=== PATIENT | female | born 1935 | race African-American/Black ===

== ENCOUNTER 2019-06-26 12:53 | Observation (INO) | payer MEDICARE ==
[2019-06-26 13:26] LABS: ABSOLUTE LYMPHOCYTES (AUTO) 1.3 10^3/uL (0.5-4.7); ABSOLUTE MONOCYTES (AUTO) 0.7 10^3/uL (0.1-1.4); ABSOLUTE NEUT (AUTO) 3.8 10^3/uL (1.7-8.2); BASOPHILS % (AUTO) 0.8 % (0-2); EOSINOPHILS % (AUTO) 0.7 % (0-6); HEMATOCRIT 38.9 % (36.0-47.0); HEMOGLOBIN 12.1 g/dL (12.0-15.5); LYMPHOCYTES % (AUTO) 22.2 % (13-45); MEAN CORPUSCULAR HGB CONC 31.1 g/dL (32.0-36.0); MEAN CORPUSCULAR VOLUME 80 fl (80-97); MONOCYTES % (AUTO) 11.8 % (3-13); PLATELET COUNT 188 10^3/uL (150-450); RED BLOOD COUNT 4.86 10^6/uL (3.72-5.28); SEGMENTED NEUTROPHILS % (AUTO) 64.5 % (42-78); TOTAL CELLS COUNTED % (AUTO) 100 %; WHITE BLOOD COUNT 5.9 10^3/uL (4.0-10.5)
[2019-06-26 13:47] LABS: ALBUMIN 4.3 g/dL (3.5-5.0); ALKALINE PHOSPHATASE 68 U/L (38-126); ANION GAP 16 (5-19); ASPARTATE AMINO TRANSFERASE 118 U/L (14-36); BILIRUBIN,DIRECT 0.5 mg/dL (0.0-0.4); BILIRUBIN,TOTAL 0.5 mg/dL (0.2-1.3); BLOOD UREA NITROGEN 114 mg/dL (7-20); CALCIUM 9.3 mg/dL (8.4-10.2); CARBON DIOXIDE 25 mmol/L (22-30); CHLORIDE 96 mmol/L (98-107); CREATINE KINASE 25 U/L (30-135); GLUCOSE 188 mg/dL (75-110); TOTAL PROTEIN 7.3 g/dL (6.3-8.2)
[2019-06-26] MEDS ORDERED: CALCIUM GLUCONATE 1000 MG/10 ML INJ IV ONE (13:47)
--- NOTE | 2019-06-26 13:53 | ER Document Report ---
ED Cardiac - General Chief Complaint: Arrhythmia Stated Complaint: HEART PROBLEMS Time Seen by Provider: 06/26/19 13:30 - Related Data Allergies/Adverse Reactions: Penicillins Allergy (Verified 06/26/19 13:00) Past Medical History - Social History Smoking Status: Former Smoker Family History: Reviewed & Not Pertinent Patient has suicidal ideation: No Patient has homicidal ideation: No Physical Exam - Vital signs Vitals: Temp Resp BP Pulse Ox 97.8 F 11 L 124/46 L 100 06/26/19 13:17 06/26/19 13:17 06/26/19 13:17 06/26/19 13:17 - Notes Notes: Patient was sent from dialysis valuation of low blood pressure and slow heart rate. I did verify this family said the blood pressure was low and heart rate was slow. Patient is normally dialyzed Wednesday and Wednesday. Had normal dialysis on Wednesday her weight was not up at the time. Her family says that her weight was up a little bit today but she gets that way after the weekend. She has been compliant with her medications family says that the give her all her medications. Right eye is been good. She denies any fevers denies any chest pain shortness of breath having abdominal pain or diarrhea. Complained of a little bit of nausea today and being lightheaded but she has had intermittently anyway. Denies any chest pain. EMS reports that patient was doing some weakness no hypotension noted Past medical history sent for hypertension renal failure on dialysis Wednesday and Wednesday did have diabetes and improved on dialysis she is elevated cholesterol and mild dementia but no history coronary artery disease. Social history does not smoke or drink at all Review of systems pertinent positives and negatives in HPI otherwise all the systems were reviewed and acutely negative patient is somewhat confused so unclear how reliable PHYSICIAN EXAM -vital signs are noted triage note and note from triage reviewed GENERAL: Well-appearing, well-nourished and in _no acute distress HEAD: Atraumatic, normocephalic. EYES: Pupils equal round and reactive to light, extraocular movements intact, sclera anicteric, conjunctiva are normal. ENT: nares patent, oropharynx clear without exudates. Moist mucous membranes. NECK: supple without lymphadenopathy LUNGS: Breath sounds clear to auscultation bilaterally and equal. No wheezes rales or rhonchi. HEART: He has a very slow heart rate with a 2/6 soft ejection murmur he has a strong radial pulse ABDOMEN: Soft, nontender, normoactive bowel sounds. EXTREMITIES: No deformity, +2 edema to the knee but no palpable cords NEUROLOGICAL: Alert and oriented x4. She answers all questions appropriately but at times seems confused then will go off on tangents cranial nerves he has symmetrical smile facies and shoulder shrug. His motor strength is 5/5 bilaterally in the upper and lower extremities. Toes downgoing. Sensation is intact to light touch is a negative Romberg PSYCH: Normal mood, normal affect. SKIN: Warm, Dry, normal turgor, no rashes or lesions noted. BACK-nontender in the midline Differential diagnosis acute anemia unintentional overdose to b-melony toxicity Course - Re-evaluation Re-evalutation: 06/26/19 21:27 ED patient is remained stable immediately after reviewing EKG was concerned about hyperkalemia. She was given 1 g of calcium gluconate 2 amp of D50 10 units of insulin, and a bicarb drip. Megan case with nephrology versus Kayexalate indicated they would be able to dialyze the patient in about 2 hours. Discussed care with cardiology they felt was related to her potassium and indicated they would see the patient later if she was to have complications post dialysis. Patient did well during dialysis with improvement of her heart rate to the low 40s. Blood pressure remained about the same. Just at the end of dialysis I was called to the room because patient had a brief staring episode. Dialysis nurse that the patient was trembling a little bit but no actual seizures. Today she seems confused but quickly came around and was able to answer all questions appropriately. She did not have any preceding chest pain headache or lightheadedness and remembers her body coming in the room. On repeat exam is noted that her heart rate increases to 70s but markedly increased to 240/120 but she is awake and alert. On exam lungs are clear heart is regular rate and rhythm neurological she had a nonfocal exam. A repeat EKG was obtained which now showed a normal sinus rhythm with some very minimal nonspecific ST wave changes head CT was negative patient has remained neurologically intact. Her sugar at that time was 91 empirically she was given orange juice with sugar and then a snack pressure is now improved to 07/03/1983 family says she only runs diastolics around 160 Medical decision making patient presents with an episode of weakness and severe bradycardia probably related to her hyperkalemia heart rate has improved blood pressure has been stable she had a brief episode of unresponsiveness of unclear etiology did not appear to be consistent with a seizure or vasovagal. She was not over dialyzed according to the dialysis nurse as a has not had a reaction like this before with dialysis according to the son she will need admission to the hospital ordered repeat labs - Vital Signs Vital signs: Temp Pulse Resp BP Pulse Ox 98.1 F 14 181/53 H 99 06/26/19 20:27 06/26/19 20:31 06/26/19 20:30 06/26/19 20:31 - Laboratory Result Diagrams: 06/26/19 13:10 06/26/19 15:55 Laboratory results interpreted by me: 06/26/19 06/26/19 06/26/19 13:10 13:10 15:55 MCH 25.0 L MCHC 31.1 L RDW 20.0 H Sodium 136.7 L Potassium 6.7 H* 6.9 H* Chloride 96 L BUN 114 H Creatinine 8.80 H Est GFR ( Amer) 5 L Est GFR (MDRD) Non-Af 4 L Glucose 188 H Direct Bilirubin 0.5 H AST 118 H Creatine Kinase 25 L - EKG Interpretation by Me Additional EKG results interpreted by me: 06/26/19 13:52 EKG shows a junctional rhythm with a rate of 32 no P waves present. Does appear to be a regular rhythm normal axis and QT interval. P waves appear to be peaked old EKGs for comparison Critical Care Note - Critical Care Note Total time excluding time spent on procedures (mins): 75 Discharge - Discharge Clinical Impression: Hyperkalemia, Bradycardia, Near syncope Chronic renal failure Qualifiers: Chronic kidney disease stage: unspecified stage Qualified Code(s): N18.9 - Chronic kidney disease, unspecified Condition: Good Disposition: ADMITTED OBSERVATION Admitting Provider: Ari (Hospitalist) Unit Admitted: Telemetry
[2019-06-26 13:56] LABS: POTASSIUM 6.7 mmol/L (3.6-5.0)
[2019-06-26 13:57] LABS: CREATINE KINASE MB 1.72 ng/mL (<4.55); TROPONIN I 0.03 ng/mL
[2019-06-26] MEDS ORDERED: DEXTROSE 5%-WATER 1000 ML 1,000 ML with SODIUM BICARBONATE 150 MEQ IV PRN ×2 (14:06)
[2019-06-26] MEDS ORDERED: DEXTROSE 10%-WATER 1,000 ML IV ONE (14:09)
[2019-06-26] MEDS ORDERED: INSULIN REG, HUMAN 100 UNIT/ML 3 ML VIAL (PYX) IV ONE (14:11)
--- NOTE | 2019-06-26 14:32 | RADIOLOGY REPORT (SQ) ---
EXAM DESCRIPTION: CHEST SINGLE VIEW COMPLETED DATE/TIME: 06/26/2019 2:20 pm REASON FOR STUDY: Week COMPARISON: None. EXAM PARAMETERS: NUMBER OF VIEWS: One view. TECHNIQUE: Single frontal radiographic view of the chest acquired. RADIATION DOSE: NA LIMITATIONS: None. FINDINGS: LUNGS AND PLEURA: No opacities, masses or pneumothorax. No pleural effusion. MEDIASTINUM AND HILAR STRUCTURES: No masses. Contour normal. HEART AND VASCULAR STRUCTURES: Heart normal in size. Normal vasculature. BONES: No acute findings. HARDWARE: None in the chest. OTHER: No other significant finding. IMPRESSION: NO ACUTE RADIOGRAPHIC FINDING IN THE CHEST. TECHNICAL DOCUMENTATION: JOB ID: [id number]- All Rights Reserved Reading location - IP/workstation name: [email or web address]
[2019-06-26] MEDS ORDERED: SODIUM POLYSTYRENE SULFONATE 15 GM/60 ML PO ONE (14:45)
[2019-06-26] MEDS ORDERED: SODIUM BICARBONATE 8.4% INJ 50 MEQ/50 ML DISP.SYRIN ONE (15:16)
[2019-06-26] MEDS ORDERED: DEXTROSE 50%-WATER 25 GM/50 ML DISP.SYRIN IV ONE (15:33)
--- NOTE | 2019-06-26 16:36 | PDOC CONSULTATION ---
Consultation Consult Date: 06/26/19 Provider Consulted: Jovi DE LEON Consult reason:: Acute hyperkalemia with EKG changes for urgent HD. History of Present Illness History of Present Illness: VANESSA INGRAM is a 84 year old female with a history of ESRD on HD who just transferred from an outside unit in [facility] to [facility] , Hypertension was send from [facility] with a history that she was not her regular self. She is also found to have hypotension with her heart rate in the mid to upper 30s. There is no history of any seizures or focal deficits. There is no complaints of any chest pain or shortness of breath. Evaluations in the ER r evealed that she was hypotensive and the heart rate was in the high 30s. Further lab evaluations revealed that she was also hyperkalemic at 6.9 with EKG changes which was presumed to be the cause of her symptomatic bradycardia. She was evaluated and after further discussions with the ER physician and urgent anti-hyperkalemic measures were instituted. Following that urgent hemodialysis was instructed to do that and patient looking good while being seen on dialysis. Son and [id number] to the bedside in the ER while patient is undergoing dialysis. They have not see any weakness seizures or loss of loss of consciousness. Patient currently undergoing dialysis. Blood pressure stable.h eart rate is around 35-40. Dialysis orders were reviewed with him dialysis nurse for Past Medical History Cardiac Medical History: Reports: Hyperlipidemia, Hypertension-primary Endocrine Medical History: Reports: Diabetes Mellitus Type 2 Renal/ Medical History: Reports: End Stage Renal Disease, Secondary Hyperparathyroidism Social History Smoking Status: Former Smoker Family History Parental Family History Reviewed: No Children Family History Reviewed: No Sibling(s) Family History Reviewed.: No Medication/Allergy Home Medications: Acetaminophen [Tylenol 650 mg Supp] 650 mg TN Q4HP PRN supp.rect 06/27/19 Amlodipine Besylate [Norvasc 10 mg Tablet] 10 mg PO DAILY 06/27/19 Aspirin [Ecotrin 81 mg EC Tablet] 81 mg PO DAILY 06/27/19 Clonidine HCl [Catapres 0.2 mg Tablet] 0.2 mg PO Q12 06/27/19 Hydralazine HCl [Apresoline 25 mg Tablet] 25 mg PO TID #90 tab 06/27/19 Lidocaine/Prilocaine [Lidocaine-Prilocaine Cream] 1 each TP ASDIR PRN 06/27/19 Lovastatin 60 mg PO QHS 06/27/19 Multivitamin [Tab-A-Chantelle (Multiple Vitamin) Tablet] 1 tab PO DAILY 06/27/19 Venlafaxine HCl [Venlafaxine HCl ER] 150 mg PO Q12 06/27/19 Allergies/Adverse Reactions: Penicillins Allergy (Verified 06/26/19 13:00) Review of Systems Constitutional: ABSENT: anorexia, chills, fever(s), headache(s), night sweats, weakness Eyes: ABSENT: visual disturbances Ears: ABSENT: hearing changes Nose, Mouth, and Throat: ABSENT: mouth pain, sore throat Cardiovascular: PRESENT: edema. ABSENT: chest pain, dyspnea on exertion, orthropnea, palpitations Respiratory: ABSENT: dyspnea, hemoptysis Gastrointestinal: ABSENT: abdominal pain, bloating, coffee ground emesis, diarrhea, dysphagia, heartburn, nausea, vomiting Musculoskeletal: ABSENT: deformity, joint swelling Integumentary: ABSENT: lesions, pruritus Neurological: PRESENT: memory loss. ABSENT: abnormal movements, abnormal speech, confusion, convulsions, focal weakness, frequent falls, lack of coordination Psychiatric: ABSENT: depression, hallucinations Hematologic/Lymphatic: ABSENT: easy bruising, lymphadenopathy Physical Exam Vital Signs: Temp Pulse Resp BP Pulse Ox 97.8 F 14 114/68 98 06/26/19 13:17 06/26/19 16:00 06/26/19 15:32 06/26/19 16:00 Intake & Output 06/25/19 06/26/19 06/27/19 06:59 06:59 06:59 Weight 52.163 kg General appearance: PRESENT: no acute distress Eye exam: PRESENT: EOMI, PERRLA. ABSENT: scleral icterus Ear exam: PRESENT: normal external ear exam Mouth exam: PRESENT: moist, neck supple Neck exam: ABSENT: lymphadenopathy, meningismus, tenderness, thyromegaly, tracheal deviation Respiratory exam: PRESENT: clear to auscultation viviane. ABSENT: chest wall tenderness, crackles Cardiovascular exam: PRESENT: +S1, +S2 GI/Abdominal exam: PRESENT: normal bowel sounds, soft. ABSENT: organomegaly, tenderness Extremities exam: PRESENT: +1 edema Neurological exam: PRESENT: alert, awake, oriented to person, oriented to place. ABSENT: oriented to time Psychiatric exam: PRESENT: appropriate affect Skin exam: ABSENT: cyanosis, erythema, mottled, rash Results Laboratory Results: 06/26/19 13:10 06/26/19 15:55 06/26/19 06/26/19 06/26/19 13:10 13:10 13:10 WBC 5.9 RBC 4.86 Hgb 12.1 Hct 38.9 MCV 80 MCH 25.0 L MCHC 31.1 L RDW 20.0 H Plt Count 188 Seg Neutrophils % 64.5 Sodium 136.7 L Potassium 6.7 H* Chloride 96 L Carbon Dioxide 25 Anion Gap 16 BUN 114 H Creatinine 8.80 H Est GFR ( Amer) 5 L Glucose 188 H Lactic Acid Calcium 9.3 Total Bilirubin 0.5 AST 118 H Alkaline Phosphatase 68 Total Protein 7.3 Albumin 4.3 Blood Type Cancelled Antibody Screen Cancelled 06/26/19 06/26/19 15:55 15:55 WBC RBC Hgb Hct MCV MCH MCHC RDW Plt Count Seg Neutrophils % Sodium Potassium 6.9 H* Chloride Carbon Dioxide Anion Gap BUN Creatinine Est GFR ( Amer) Glucose Lactic Acid 1.4 Calcium Total Bilirubin AST Alkaline Phosphatase Total Protein Albumin Blood Type Antibody Screen 06/26/19 06/26/19 13:10 13:10 Creatine Kinase 25 L CK-MB (CK-2) 1.72 Troponin I 0.030 Impressions: Chest X-Ray 06/26/19 14:04 IMPRESSION: NO ACUTE RADIOGRAPHIC FINDING IN THE CHEST. Assessment & Plan - Diagnosis (1) Bradycardia Is this a current diagnosis for this admission?: Yes Plan: Likely secondary to severe hyperkalemia. Changes. Anti-hyperkalemic measures has been instituted and patient currently undergoing dialysis on a appropriate low K bath. We will see the response postdialysis. Discussion done with the treating ER physician. (2) Hyperkalemia Is this a current diagnosis for this admission?: Yes Plan: After medical emergency measures has been instituted given the acuity changes from hyperkalemia patient now undergoing emergent hemodialysis on a market K bath. We will see response postdialysis. (3) End-stage renal disease on hemodialysis Is this a current diagnosis for this admission?: Yes Plan: Patient currently undergoing dialysis. Vital signs are stable now with no rmotension but for bradycardia. Plan to remove 2 to 3 L as tolerated. Dialysis is being supervised to ensure safe and smooth procedure. Dialysis orders were reviewed in dialysis nurse. (4) Hypertension Qualifiers: Hypertension type: essential hypertension Qualified Code(s): I10 - Essential (primary) hypertension Is this a current diagnosis for this admission?: Yes Plan: Normotensive. Monitor. (5) Diabetes mellitus type 2 in nonobese Is this a current diagnosis for this admission?: Yes Plan: Presently controlled.
--- NOTE | 2019-06-26 17:18 | EKG REPORT ---
SEVERITY:- ABNORMAL ECG - JUNCTIONAL ESCAPE RHYTHM TALL T WAVES .? HYPERKALEMIA : Confirmed by: Ayaka Sandoval MD 26-Jun-2019 17:17:34
[2019-06-26] MEDS ORDERED: ONDANSETRON HCL INJ/PF 4 MG/2 ML SDV ONE (19:18)
[2019-06-26] MEDS ORDERED: ONDANSETRON HCL INJ/PF 4 MG/2 ML SDV IV ONE (19:23)
--- NOTE | 2019-06-26 20:38 | RADIOLOGY REPORT (SQ) ---
EXAM DESCRIPTION: CT HEAD WITHOUT INTRAVENOUS CONTRAST CLINICAL HISTORY: Altered mental status. COMPARISON: None TECHNIQUE: CT of the head was performed without intravenous contrast .This exam was performed according to our departmental dose-optimization program, which includes automated exposure control, adjustment of the mA and/or KV according to the patient's size and/or use of iterative reconstruction technique. FINDINGS: Ventricles not significantly enlarged. Mild cortical atrophy. Moderate periventricular white matter hypodensities chronic in nature. No obvious acute intra-axial or extra-axial abnormality. Atherosclerotic disease. Empty sella. Bony calvarium, mastoid air cells and paranasal sinuses are unremarkable. IMPRESSION: Chronic periventricular white matter changes. Atherosclerotic disease. Empty sella. There are no acute intracranial findings.
[2019-06-26 22:02] LABS: ANION GAP 15 (5-19); CARBON DIOXIDE 31 mmol/L (22-30); CHLORIDE 93 mmol/L (98-107); GLUCOSE 111 mg/dL (75-110)
[2019-06-26 22:27] LABS: BLOOD UREA NITROGEN 63 mg/dL (7-20); POTASSIUM 4.3 mmol/L (3.6-5.0)
[2019-06-26] MEDS ORDERED: MELATONIN 5 MG TABLET PO PRN (22:35)
[2019-06-26] MEDS ORDERED: LORAZEPAM INJ 2 MG/1 ML VIAL IV PRN (22:35)
[2019-06-26] MEDS ORDERED: MAG HYDROX/AL HYDROX/SIMETH SUSP 30 ML UDCUP PO PRN (22:35)
[2019-06-26] MEDS ORDERED: MAGNESIUM HYDROXIDE SUSP 30 ML UDCUP PO PRN (22:35)
[2019-06-26] MEDS ORDERED: ACETAMINOPHEN 650 MG SUPP.RECT PR PRN (22:35)
[2019-06-26] MEDS ORDERED: HYDRALAZINE HCL INJ/PF 20 MG/1 ML SDV IV PRN (22:35)
[2019-06-26] MEDS ORDERED: ONDANSETRON HCL INJ/PF 4 MG/2 ML SDV IV PRN (22:37)
[2019-06-26 22:41] LABS: ABSOLUTE MONOCYTES (AUTO) 0.6 10^3/uL (0.1-1.4); ABSOLUTE NEUT (AUTO) 4.6 10^3/uL (1.7-8.2); BASOPHILS % (AUTO) 0.4 % (0-2); EOSINOPHILS % (AUTO) 0.7 % (0-6); HEMATOCRIT 39.8 % (36.0-47.0); HEMOGLOBIN 12.6 g/dL (12.0-15.5); LYMPHOCYTES % (AUTO) 15.8 % (13-45); MEAN CORPUSCULAR HGB CONC 31.6 g/dL (32.0-36.0); MEAN CORPUSCULAR VOLUME 79 fl (80-97); MONOCYTES % (AUTO) 10.1 % (3-13); PLATELET COUNT 189 10^3/uL (150-450); RED BLOOD COUNT 5.03 10^6/uL (3.72-5.28); RED CELL DISTRIBUTION WIDTH 19.2 % (11.5-14.0); TOTAL CELLS COUNTED % (AUTO) 100 %; WHITE BLOOD COUNT 6.3 10^3/uL (4.0-10.5)
[2019-06-26] MEDS ORDERED: DEXTROSE 50%-WATER 25 GM/50 ML DISP.SYRIN IV PRN ×2 (22:44)
[2019-06-26] MEDS ORDERED: DEXTROSE 40% GEL 15 GM TUBE PO PRN ×2 (22:44)
[2019-06-26] MEDS ORDERED: GLUCAGON,HUMAN RECOMB 1 MG INJ IM PRN (22:44)
--- NOTE | 2019-06-27 00:58 | PDOC H&P ---
History of Present Illness Admission Date/PCP: 06/26/19 21:53 Dr. Madhav Arnold MD Patient complains of: Bradycardia History of Present Illness: VANESSA ESPINOZA is a 84 year old female who presented to the emergency room from the dialysis clinic for evaluation of bradycardia. The patient and her family admit that she presented to the dialysis center for her normal renal hemodialysis today but was noted to have a slow heart rate in the 30s and as such was sent to the emergency room for further evaluation. In the emergency room the patient was found to have a heart rate in the 30s and was also noted to be relatively hypotensive compared to her normal hypertensive state. She admitted mild nausea and lightheadedness upon standing today but these are symptoms that she has frequently and did not seem unusual to her. She denies other associated or accompanying signs and symptoms. She denies prior similar episodes. She has not identified any additional aggravating or ameliorating factors for her bradycardia. In the emergency room she was found to have hyperkalemia with a potassium of 6.[address] Arnold was consulted for nephrology. Patient was treated with glucose and insulin as well as bicarbonate and Kayexalate in the interim and then taken for hemodialysis therapy. At the end of her hemodialysis treatment the patient had a brief episode of decreased responsiveness and was noted to have some twitching all of which lasted a few seconds and resolved with the patient denying any loss of consciousness. Due to this brief episode the patient was placed on observation status for evaluation. Past Medical History Cardiac Medical History: Reports: Hyperlipidema, Hypertension Denies: Atrial Fibrillation, Coronary Artery Disease, Myocardial Infarction, Peripheral Vascular Disease Pulmonary Medical History: Denies: Asthma, Chronic Obstructive Pulmonary Disease (COPD) EENT Medical History: Denies: Cataracts, Ears - Hearing aids Neurological Medical History: Denies: Hemorrhagic CVA, Ischemic CVA, Seizures Endocrine Medical History: Reports: Diabetes Mellitus Type 2 Denies: Diabetes Mellitus Type 1, Hyperthyroidism, Hypothyroidism, Obesity Renal/ Medical History: Reports: End Stage Renal Disease Denies: Nephrolithiasis Malignancy Medical History: Reports: None GI Medical History: Denies: Cirrhosis, Crohn's Disease, Hepatitis, Ulcerative Colitis Musculoskeltal Medical History: Reports: Arthritis - Osteoarthritis involving multiple joints Denies: Fibromyalgia Skin Medical History: Denies: Eczema, Psoriasis Psychiatric Medical History: Denies: Alcohol Dependency, Substance Abuse, Tobacco Dependency Traumatic Medical History: Reports: None Hematology: Denies: Anemia, Bleeding Tendencies Infectious Medical History: Reports: None Past Surgical History Past Surgical History: Reports: Hysterectomy, Knee Replacement, Orthopedic Surgery - Bilateral shoulder surgery, left knee replacement, Vascular Surgery - Permanent hemodialysis access left upper arm Social History Information Source: Patient Lives with: Family Smoking Status: Former Smoker Electronic Cigarette use?: No Frequency of Alcohol Use: None Hx Recreational Drug Use: No Drugs: None Hx Prescription Drug Abuse: No - Advance Directive Resuscitation Status: Full Code Surrogate healthcare decision maker:: Antonio Espinoza Family History Family History: CAD, DM, Hypertension, Malignancy Parental Family History Reviewed: Yes Children Family History Reviewed: No Sibling(s) Family History Reviewed.: Yes Medication/Allergy Allergies/Adverse Reactions: Penicillins Allergy (Verified 06/26/19 13:00) Review of Systems Constitutional: PRESENT: as per HPI, other - Lightheadedness. ABSENT: chills, fever(s) Eyes: ABSENT: visual disturbances, other - Eye pain Ears: ABSENT: hearing changes, other - Ear pain Nose, Mouth, and Throat: ABSENT: headache(s), mouth pain, sore throat Cardiovascular: ABSENT: chest pain, palpitations Respiratory: ABSENT: cough, dyspnea Gastrointestinal: PRESENT: as per HPI, nausea. ABSENT: abdominal pain, constipation, diarrhea, vomiting Genitourinary: ABSENT: dysuria, hematuria Musculoskeletal: ABSENT: back pain, joint swelling, muscle weakness Integumentary: ABSENT: pruritus, rash Neurological: ABSENT: confusion, convulsions, focal weakness, memory loss, syncope Psychiatric: ABSENT: anxiety, depression Endocrine: ABSENT: cold intolerance, heat intolerance Hematologic/Lymphatic: ABSENT: easy bleeding, easy bruising Allergic/Immunologic: ABSENT: seasonal rhinorrhea Physical Exam Vital Signs: Temp Pulse Resp BP Pulse Ox 98.1 F 14 181/53 H 99 06/26/19 20:27 06/26/19 20:31 06/26/19 20:30 06/26/19 20:31 Intake & Output 06/24/19 06/25/19 06/26/19 23:59 23:59 23:59 Intake Total 1000 Balance 1000 Weight 52.163 kg General appearance: PRESENT: no acute distress, cooperative Head exam: PRESENT: atraumatic, normocephalic Eye exam: PRESENT: conjunctiva pink. ABSENT: conjunctival injection, scleral icterus Ear exam: PRESENT: normal external ear exam. ABSENT: bleeding, drainage Mouth exam: PRESENT: dry mucosa, neck supple Neck exam: ABSENT: thyromegaly, tracheal deviation Respiratory exam: PRESENT: clear to auscultation viviane, symmetrical, unlabored Cardiovascular exam: PRESENT: RRR. ABSENT: clicks, gallop, rubs Pulses: PRESENT: normal radial pulses, normal dorsalis pedis pul Vascular exam: PRESENT: normal capillary refill. ABSENT: pallor GI/Abdominal exam: PRESENT: normal bowel sounds, soft Rectal exam: PRESENT: deferred Extremities exam: ABSENT: joint swelling, pedal edema Musculoskeletal exam: ABSENT: deformity, dislocation Neurological exam: PRESENT: alert, oriented to person, oriented to place, oriented to time, oriented to situation, CN II-XII grossly intact. ABSENT: motor sensory deficit Psychiatric exam: PRESENT: appropriate affect, normal mood Skin exam: PRESENT: dry, intact, warm. ABSENT: jaundice, rash, urticaria Results Laboratory Results: 06/26/19 13:10 06/26/19 06/26/19 06/26/19 13:10 13:10 13:10 WBC 5.9 RBC 4.86 Hgb 12.1 Hct 38.9 MCV 80 MCH 25.0 L MCHC 31.1 L RDW 20.0 H Plt Count 188 Seg Neutrophils % 64.5 VBG pH VBG pCO2 VBG HCO3 VBG Base Excess Sodium 136.7 L Potassium 6.7 H* Chloride 96 L Carbon Dioxide 25 Anion Gap 16 BUN 114 H Creatinine 8.80 H Est GFR ( Amer) 5 L Glucose 188 H Lactic Acid Calcium 9.3 Total Bilirubin 0.5 AST 118 H Alkaline Phosphatase 68 Total Protein 7.3 Albumin 4.3 Blood Type Cancelled Antibody Screen Cancelled 06/26/19 06/26/19 06/26/19 15:55 15:55 17:05 WBC RBC Hgb Hct MCV MCH MCHC RDW Plt Count Seg Neutrophils % VBG pH VBG pCO2 VBG HCO3 VBG Base Excess Sodium Potassium 6.9 H* Chloride Carbon Dioxide Anion Gap BUN Creatinine Est GFR ( Amer) Glucose Lactic Acid 1.4 Calcium Total Bilirubin AST Alkaline Phosphatase Total Protein Albumin Blood Type A POSITIVE Antibody Screen NEGATIVE 06/26/19 17:16 WBC RBC Hgb Hct MCV MCH MCHC RDW Plt Count Seg Neutrophils % VBG pH Cancelled VBG pCO2 Cancelled VBG HCO3 Cancelled VBG Base Excess Cancelled Sodium Potassium Chloride Carbon Dioxide Anion Gap BUN Creatinine Est GFR ( Amer) Glucose Lactic Acid Calcium Total Bilirubin AST Alkaline Phosphatase Total Protein Albumin Blood Type Antibody Screen 06/26/19 06/26/19 13:10 13:10 Creatine Kinase 25 L CK-MB (CK-2) 1.72 Troponin I 0.030 Impressions: Chest X-Ray 06/26/19 14:04 IMPRESSION: NO ACUTE RADIOGRAPHIC FINDING IN THE CHEST. Head CT 06/26/19 19:35 IMPRESSION: Chronic periventricular white matter changes. Atherosclerotic disease. Empty sella. There are no acute intracranial findings. Assessment and Plan - Diagnosis (1) Near syncope Is this a current diagnosis for this admission?: Yes (2) Hyperkalemia Is this a current diagnosis for this admission?: Yes (3) Bradycardia Is this a current diagnosis for this admission?: Yes (4) End-stage renal disease on hemodialysis Is this a current diagnosis for this admission?: Yes (5) Hypertension Qualifiers: Hypertension type: essential hypertension Qualified Code(s): I10 - Essential (primary) hypertension Is this a current diagnosis for this admission?: Yes (6) Hyperlipidemia, unspecified Qualifiers: Hyperlipidemia type: unspecified Qualified Code(s): E78.5 - Hyperlipidemia, unspecified Is this a current diagnosis for this admission?: Yes (7) Diabetes mellitus type 2 in nonobese Is this a current diagnosis for this admission?: Yes - Plan Summary Summary: Patient is admitted observation status for of her status. She will be observed on the medical floor with a manager internet retails sales in place. Before meals and at bedtime Accu-Cheks will be obtained with sliding scale insulin used for hyperglycemia and a hypoglycemic protocol in place. Patient will receive Ativan 1 mg IV every 4 hours as needed for anxiety or restlessness. - Time Time Spent with patient: 15-24 minutes Medications reviewed and adjusted accordingly: Yes Anticipated discharge: Home - Inpatient Certification Based on my medical assessment, after consideration of the patient's comorbidities, presenting symptoms, or acuity I expect that the services needed warrant INPATIENT care.: No I certify that my determination is in accordance with my understanding of Medic are's requirements for reasonable and necessary INPATIENT services [42 CFR 412.3e].: No Medical Necessity: Need For Continuous Telemetry Monitoring
[2019-06-27] MEDS ORDERED: PANTOPRAZOLE SODIUM 20 MG TABLET.DR PO SCH (06:00)
[2019-06-27] MEDS: HEPARIN SOD (PORCINE) 5,000 UNIT/ML 1 ML VIAL SUBCUT SCH ×2 (06:13→15:01)
[2019-06-27 06:14] LABS: HEMATOCRIT 38.6 % (36.0-47.0); HEMOGLOBIN 12.3 g/dL (12.0-15.5); MEAN CORPUSCULAR HEMOGLOBIN 25.2 pg (27.0-33.4); MEAN CORPUSCULAR HGB CONC 31.8 g/dL (32.0-36.0); MEAN CORPUSCULAR VOLUME 79 fl (80-97); PLATELET COUNT 191 10^3/uL (150-450); RED BLOOD COUNT 4.88 10^6/uL (3.72-5.28); RED CELL DISTRIBUTION WIDTH 19.9 % (11.5-14.0); WHITE BLOOD COUNT 7.6 10^3/uL (4.0-10.5)
[2019-06-27 06:33] LABS: ANION GAP 14 (5-19); BLOOD UREA NITROGEN 66 mg/dL (7-20); CALCIUM 9.3 mg/dL (8.4-10.2); CARBON DIOXIDE 30 mmol/L (22-30); CHLORIDE 98 mmol/L (98-107); GLUCOSE 75 mg/dL (75-110); POTASSIUM 4.2 mmol/L (3.6-5.0)
[2019-06-27] MEDS ORDERED: DOCUSATE SODIUM 100 MG CAPSULE PO SCH (10:00)
[2019-06-27] MEDS ORDERED: INFLUENZA QUAD (6MOS+) 2019-20 VAC 0.5 ML SYR IM ONE (10:10)
[2019-06-27] MEDS: INSULIN REG, HUMAN 100 UNIT/ML 3 ML VIAL (PYX) SUBCUT SCH ×2 (10:20→14:42)
--- NOTE | 2019-06-27 11:22 | EKG REPORT ---
SEVERITY:- NORMAL ECG - SINUS RHYTHM : Confirmed by: Ayaka Sandoval MD 27-Jun-2019 11:21:24
[2019-06-27 14:20] VITALS: BP 179/60
--- NOTE | 2019-06-28 18:38 | PDOC DISCHARGE SUMMARY ---
Impression - Admit/DC Date/PCP Admission Date/Primary Care Provider: 06/26/19 21:53 Discharge Date: 06/27/19 - Additional Information Resuscitation Status: Full Code Discharge Diet: Cardiac, Other (Comments) Discharge Activity: Activity As Tolerated, Balance Activity w/Rest Referrals: Jovi ARNOLD MD [ACTIVE STAFF] - 06/28/19 (Patient will Follow-Up on next dialysis day.) Prescriptions: Hydralazine HCl [Apresoline 25 mg Tablet] 25 mg PO TID #90 tab Home Medications: Acetaminophen [Tylenol 650 mg Supp] 650 mg SC Q4HP PRN supp.rect 06/27/19 Amlodipine Besylate [Norvasc 10 mg Tablet] 10 mg PO DAILY 06/27/19 Aspirin [Ecotrin 81 mg EC Tablet] 81 mg PO DAILY 06/27/19 Clonidine HCl [Catapres 0.2 mg Tablet] 0.2 mg PO Q12 06/27/19 Hydralazine HCl [Apresoline 25 mg Tablet] 25 mg PO TID #90 tab 06/27/19 Lidocaine/Prilocaine [Lidocaine-Prilocaine Cream] 1 each TP ASDIR PRN 06/27/19 Lovastatin 60 mg PO QHS 06/27/19 Multivitamin [Tab-A-Chantelle (Multiple Vitamin) Tablet] 1 tab PO DAILY 06/27/19 Venlafaxine HCl [Venlafaxine HCl ER] 150 mg PO Q12 06/27/19 History of Present Illiness History of Present Illness: Per H&P by Dr. Roberts: VANESSA INGRAM is a 84 year old female who presented to the emergency room from the dialysis clinic for evaluation of bradycardia. The patient and her family admit that she presented to the dialysis center for her normal renal hemodialysis today but was noted to have a slow heart rate in the 30s and as such was sent to the emergency room for further evaluation. In the emergency room the patient was found to have a heart rate in the 30s and was also noted to be relatively hypotensive compared to her normal hypertensive state. She admitted mild nausea and lightheadedness upon standing today but these are symptoms that she has frequently and did not seem unusual to her. She denies other associated or accompanying signs and symptoms. She denies prior similar episodes. She has not identified any additional aggravating or ameliorating factors for her bradycardia. In the emergency room she was found to have hyperkalemia with a potassium of 6.[address] Arnold was consulted for nephrology. Patient was treated with glucose and insulin as well as bicarbonate and Kayexalate in the interim and then taken for hemodialysis therapy. At the end of her hemodialysis treatment the patient had a brief episode of decreased responsiveness and was noted to have some twitching all of which lasted a few seconds and resolved with the patient denying any loss of consciousness. Due to this brief episode the patient was placed on observation status for evaluation. Hospital Course Hospital Course: The patient was admitted to the medical floor and monitored on continuous cardiac telemetry. She was observed to have continued bradycardia until approximately 1800 on day of admission (following dialysis) at which point her heart rate gradually trended up and remained stable in the mid 70s thereafter. Nephrology services were consulted and the patient did receive dialysis prior to discharge. She is instructed to follow-up at [facility] dialysis tomorrow as scheduled for her normal dialysis appointments. Cardiology services were consulted. At the time of this dictation, consultation note is not yet available. However, I did have a conversation with Dr. Corey prior to her discharge. Dr. Corey advises that the patient may continue her home dose metoprolol XL 25 mg once daily as that dose is unlikely to have significant rate reduction properties. The patient's bradycardia was most likely caused by her hyperkalemia (K 6.9). Both hyperkalemia and HR were improved following dialysis. However, patient and family members remain nervous about continued use of metoprolol related to bradycardia. Therefore, metoprolol is discontinued and she is provided a prescription for hydralazine 25 mg 3 times daily. They are advised that the patient will likely require further medication review and adjustments by nephrology or PCP at follow up appointments. Follow-up orthostatic blood pressures are negative, patient has a stable heart rate, and she is asymptomatic while ambulatory. Patient is discharged home in stable condition into the care of family with home health services. She is advised to follow-up with her primary care provider within 1 week. She is instructed to keep her appointment with dialysis tomorrow. Follow-up with nephrology as scheduled. Eat a heart healthy and renal diet. Take medications as prescribed. Change positions slowly. She is encouraged to return to the emergency department as needed for concerning symptoms. Physical Exam Vital Signs: Temp Pulse Resp BP Pulse Ox 98.5 F 74 18 179/60 H 100 06/27/19 14:18 06/27/19 14:18 06/27/19 14:18 06/27/19 14:18 06/27/19 14:18 Intake & Output 06/27/19 06/28/19 06/29/19 06:59 06:59 06:59 Intake Total 1180 360 Output Total 2000 Balance -820 360 Weight 53.4 kg General appearance: PRESENT: no acute distress, cooperative, well-developed, well-nourished Head exam: PRESENT: atraumatic, normocephalic Eye exam: PRESENT: conjunctiva pink, EOMI, PERRLA. ABSENT: scleral icterus Ear exam: PRESENT: normal external ear exam Mouth exam: PRESENT: moist, tongue midline Neck exam: ABSENT: carotid bruit, JVD, lymphadenopathy, thyromegaly Respiratory exam: PRESENT: clear to auscultation viviane, symmetrical, unlabored. ABSENT: rales, rhonchi, wheezes Cardiovascular exam: PRESENT: RRR. ABSENT: diastolic murmur, rubs, systolic murmur Pulses: PRESENT: normal dorsalis pedis pul Vascular exam: PRESENT: normal capillary refill GI/Abdominal exam: PRESENT: normal bowel sounds, soft. ABSENT: distended, guarding, mass, organolmegaly, rebound, tenderness Rectal exam: PRESENT: deferred Extremities exam: PRESENT: full ROM. ABSENT: calf tenderness, clubbing, pedal edema Neurological exam: PRESENT: alert, awake, oriented to person, oriented to place, oriented to time, oriented to situation, CN II-XII grossly intact. ABSENT: m otor sensory deficit Psychiatric exam: PRESENT: appropriate affect, normal mood. ABSENT: homicidal ideation, suicidal ideation Skin exam: PRESENT: dry, intact, warm. ABSENT: cyanosis, rash Results Laboratory Results: WBC 7.6 10^3/uL (4.0-10.5) 06/27/19 05:28 RBC 4.88 10^6/uL (3.72-5.28) 06/27/19 05:28 Hgb 12.3 g/dL (12.0-15.5) 06/27/19 05:28 Hct 38.6 % (36.0-47.0) 06/27/19 05:28 MCV 79 fl (80-97) L 06/27/19 05:28 MCH 25.2 pg (27.0-33.4) L 06/27/19 05:28 MCHC 31.8 g/dL (32.0-36.0) L 06/27/19 05:28 RDW 19.9 % (11.5-14.0) H 06/27/19 05:28 Plt Count 191 10^3/uL (150-450) 06/27/19 05:28 Lymph % (Auto) 15.8 % (13-45) 06/26/19 22:34 [place] % (Auto) 10.1 % (3-13) 06/26/19 22:34 Eos % (Auto) 0.7 % (0-6) 06/26/19 22:34 Baso % (Auto) 0.4 % (0-2) 06/26/19 22:34 Absolute Neuts (auto) 4.6 10^3/uL (1.7-8.2) 06/26/19 22:34 Absolute Lymphs (auto) 1.0 10^3/uL (0.5-4.7) 06/26/19 22:34 Absolute Monos (auto) 0.6 10^3/uL (0.1-1.4) 06/26/19 22:34 Absolute Eos (auto) 0.0 10^3/uL (0.0-0.6) 06/26/19 22:34 Absolute Basos (auto) 0.0 10^3/uL (0.0-0.2) 06/26/19 22:34 Seg Neutrophils % 73.0 % (42-78) 06/26/19 22:34 VBG pH Cancelled 06/26/19 17:16 VBG pCO2 Cancelled 06/26/19 17:16 VBG HCO3 Cancelled 06/26/19 17:16 VBG Base Excess Cancelled 06/26/19 17:16 Sodium 142.2 mmol/L (137-145) 06/27/19 05:28 Potassium 4.2 mmol/L (3.6-5.0) 06/27/19 05:28 Chloride 98 mmol/L (98-107) 06/27/19 05:28 Carbon Dioxide 30 mmol/L (22-30) 06/27/19 05:28 Anion Gap 14 (5-19) 06/27/19 05:28 BUN 66 mg/dL (7-20) H 06/27/19 05:28 Creatinine 6.67 mg/dL (0.52-1.25) H 06/27/19 05:28 Est GFR ( Amer) 7 (>60) L 06/27/19 05:28 Est GFR (MDRD) Non-Af 6 (>60) L 06/27/19 05:28 Glucose 75 mg/dL (75-110) 06/27/19 05:28 POC Glucose 162 mg/dL (70-110) H 06/27/19 12:16 Lactic Acid 1.4 mmol/L (0.7-2.1) 06/26/19 15:55 Calcium 9.3 mg/dL (8.4-10.2) 06/27/19 05:28 Magnesium 2.6 mg/dL (1.6-2.3) H 06/27/19 05:28 Total Bilirubin 0.5 mg/dL (0.2-1.3) 06/26/19 13:10 Direct Bilirubin 0.5 mg/dL (0.0-0.4) H 06/26/19 13:10 Neonat Total Bilirubin Not Reportable 06/26/19 13:10 Neonat Direct Bilirubin Not Reportable 06/26/19 13:10 Neonat Indirect Bili Not Reportable 06/26/19 13:10 AST 118 U/L (14-36) H 06/26/19 13:10 ALT 117 U/L (<35) 06/26/19 13:10 Alkaline Phosphatase 68 U/L (38-126) 06/26/19 13:10 Creatine Kinase 25 U/L (30-135) L 06/26/19 13:10 CK-MB (CK-2) 1.72 ng/mL (<4.55) 06/26/19 13:10 Troponin I 0.029 ng/mL 06/26/19 21:35 Total Protein 7.3 g/dL (6.3-8.2) 06/26/19 13:10 Albumin 4.3 g/dL (3.5-5.0) 06/26/19 13:10 Blood Type A POSITIVE 06/26/19 17:05 Antibody Screen NEGATIVE 06/26/19 17:05 06/26/19 06/26/19 13:10 21:35 CK-MB (CK-2) 1.72 Troponin I 0.030 0.029 Impressions: Chest X-Ray 06/26/19 14:04 IMPRESSION: NO ACUTE RADIOGRAPHIC FINDING IN THE CHEST. Head CT 06/26/19 19:35 IMPRESSION: Chronic periventricular white matter changes. Atherosclerotic disease. Empty sella. There are no acute intracranial findings. Plan Plan of Treatment: The patient is discharged home in stable condition. She is advised to follow-up with her primary care provider within 1 week. She is instructed to keep her dialysis schedule and to follow-up with nephrology as previously scheduled. Take medications as prescribed. Change positions slowly. Return to the emergency department as needed for concerning symptoms. Time Spent: Greater than 30 Minutes Stroke Is this a Stroke Patient?: No Acute Heart Failure - Is this a Heart Failure Patient?: No
== END 2019-06-27 15:15 | disposition home or self-care (01) ==
LOC: ER 12:53 → EH 21:53 → 5 23:24
PROVIDERS: ADMIT Emergency Medicine; ATTEND Emergency Medicine
DX: R00.1 Bradycardia, unspecified (principal); I13.11 Hypertensive heart and chronic kidney disease without heart failure, with stage 5 chronic kidney disease, or end stage renal disease; E11.22 Type 2 diabetes mellitus with diabetic chronic kidney disease; N18.6 End stage renal disease; R55 Syncope and collapse; E87.5 Hyperkalemia; E78.5 Hyperlipidemia, unspecified; R25.3 Fasciculation; I95.9 Hypotension, unspecified; R60.9 Edema, unspecified; F03.90 Unspecified dementia, unspecified severity, without behavioral disturbance, psychotic disturbance, mood disturbance, and anxiety; M15.9 Polyosteoarthritis, unspecified; Z79.899 Other long term (current) drug therapy; Z79.82 Long term (current) use of aspirin; Z87.891 Personal history of nicotine dependence; Z96.652 Presence of left artificial knee joint; Z82.49 Family history of ischemic heart disease and other diseases of the circulatory system
CPT/HCPCS: 93005; 99291; 99292; 96374; 96375; 86900; 86901; 36415 ×2; 82553; 86850; 82962 ×2; 82550; 83605; 83735; 84132; 85025; 85027; 80048; 80053; 84484; 71045; 70450; 93010; G0378 ×3; G0257; J0610; J1644; J3490 ×3; J0360; A9270 ×3; J2405; J7060; J1815

== ENCOUNTER 2019-07-12 15:07 | Emergency (ER) | payer MEDICARE ==
--- NOTE | 2019-07-12 15:58 | ER Document Report ---
ED General - General Stated Complaint: ALTERED MENTAL STATUS Time Seen by Provider: 07/12/19 15:56 Mode of Arrival: Medic Information source: Patient, Relative TRAVEL OUTSIDE OF THE [place] IN LAST 30 DAYS: No - HPI Onset: Just prior to arrival Onset/Duration: Sudden Quality of pain: No pain Severity: None Pain Level: Denies Associated symptoms: Headache, Weakness, Other - Dizziness, syncope vs presyncope Exacerbated by: Denies Relieved by: Denies Similar symptoms previously: Yes - same thing happened in June when she had hyperkalemia Recently seen / treated by doctor: Yes - patient was admitted in June for the same Notes: 84 year old female with a history of HTN, HLD, ESRD, DM, Arthritis brought to the ER from dialysis (she had the whole session) due to feeling light headed, weak, and altered. EMS noted the patient's heart rate was in the 130s. The patient has an EKG on ER arrival showing the patient is in new onset AFib. The patient cannot tell me if she lost completely consciousness or not. Of note, the patient had a similar presentation to this hospital when she passed out at dialysis in June 2019. She was bradycardic then but she also had hyperkalemia and had been taking Metoprolol. The patient was dialysed then and had her Metoprol stopped and her bradycardia resolved then. - Related Data Allergies/Adverse Reactions: Penicillins Allergy (Verified 07/12/19 17:07) Past Medical History - General Information source: Patient, Relative - Social History Smoking Status: Never Smoker Frequency of alcohol use: None Drug Abuse: None Lives with: Family Family History: CAD, DM, Hypertension, Malignancy - Past Medical History Cardiac Medical History: Reports: Hx Hypercholesterolemia, Hx Hypertension Denies: Hx Atrial Fibrillation, Hx Coronary Artery Disease, Hx Heart Attack, Hx Peripheral Vascular Disease Pulmonary Medical History: Denies: Hx Asthma, Hx COPD Neurological Medical History: Denies: Hx Seizures Endocrine Medical History: Reports: Hx Diabetes Mellitus Type 2. Denies: Hx Diabetes Mellitus Type 1, Hx Hyperthyroidism, Hx Hypothyroidism Renal/ Medical History: Reports: Hx End Stage Renal Disease GI Medical History: Denies: Hx Cirrhosis, Hx Crohn's Disease, Hx Hepatitis, Hx Ulcerative Colitis Musculoskeletal Medical History: Reports Hx Arthritis - Osteoarthritis involving multiple joints, Denies Hx Fibromyalgia Skin Medical History: Denies Hx Eczema, Denies Hx Psoriasis Infectious Medical History: Denies: Hx Hepatitis Past Surgical History: Reports: Hx Hysterectomy, Hx Orthopedic Surgery - Bilateral shoulder surgery, left knee replacement, Hx Vascular Surgery - Permanent hemodialysis access left upper arm - Immunizations Hx Diphtheria, Pertussis, Tetanus Vaccination: No Review of Systems - Review of Systems Constitutional: Weakness EENT: No symptoms reported Cardiovascular: Heart racing, Dizziness, Lightheaded Respiratory: No symptoms reported Gastrointestinal: No symptoms reported Genitourinary: No symptoms reported Female Genitourinary: No symptoms reported Musculoskeletal: No symptoms reported Skin: No symptoms reported Hematologic/Lymphatic: No symptoms reported Neurological/Psychological: Headaches Physical Exam - Vital signs Vitals: Resp BP Pulse Ox 23 H 106/68 96 07/12/19 15:25 07/12/19 15:25 07/12/19 15:25 - Notes Notes: GENERAL: Chronically ill appearing, in no acute distress. HEAD: Atraumatic, normocephalic. EYES: Pupils equal round and reactive to light, extraocular movements intact, sclera anicteric, conjunctiva are normal. ENT: TMs normal, nares patent, oropharynx clear without exudates. Moist mucous membranes. NECK: Normal range of motion, supple without lymphadenopathy or JVD. LUNGS: Breath sounds clear to auscultation bilaterally and equal. No wheezes rales or rhonchi. HEART: Regular rate and rhythm without murmurs, rubs or gallops. ABDOMEN: Soft, nontender, normoactive bowel sounds. No guarding, no rebound. No masses appreciated. EXTREMITIES: Normal range of motion, no pitting or edema. No clubbing or cyanosis. NEUROLOGICAL: Cranial nerves II through XII grossly intact. Normal speech, normal gait. PSYCH: Normal mood, normal affect. SKIN: Warm, Dry, normal turgor, no rashes or lesions noted. Course - Re-evaluation Re-evalutation: 07/12/19 19:24 The patient was weak and confused at Dialysis today. She was in AFib with RVR on ER arrival which is likely the cause of her weakness and confusion while at dialysis today. The patient returned to her baseline while in the ER and she spontaneously converted out of AFib on her own. I consulted her [employer] Dr. Corey and he recommends starting the patient on Metoprolol 12.mg BID and weanin g off Clonidine. [place] Corey will follow up the patient in clinic this week for an Event Monitor. Dr. Corey not want to start anticoagulation today since this seems to have been an isolated event and the patient has many comorbidities. I explained all this to the patient and her son and they all agree with the plan. - Vital Signs Vital signs: Temp Pulse Resp BP Pulse Ox 17 152/62 H 98 07/12/19 18:00 07/12/19 18:00 07/12/19 18:00 - Laboratory Result Diagrams: 07/12/19 17:26 07/12/19 17:26 Laboratory results interpreted by me: 07/12/19 07/12/19 07/12/19 17:26 17:26 17:26 MCV 77 L MCH 25.3 L RDW 17.1 H Lymph % (Auto) 10.8 L Seg Neutrophils % 82.7 H Chloride 95 L BUN 28 H Creatinine 3.08 H Est GFR ( Amer) 18 L Est GFR (MDRD) Non-Af 14 L Glucose 133 H Direct Bilirubin 0.6 H AST 48 H NT-Pro-B Natriuret Pep 4630 H - EKG Interpretation by Me EKG shows normal: Swisher Rate: Tachycardia Rhythm: A.Fib When compared to previous EKG there are: Changes noted Additional EKG results interpreted by me: 07/12/19 18:17 ST Depressions in V4-V6 and patient seems to be in new onset AFib Discharge - Discharge Clinical Impression: Weakness Atrial fibrillation Qualifiers: Atrial fibrillation type: paroxysmal Qualified Code(s): I48.0 - Paroxysmal atrial fibrillation Condition: Stable Disposition: HOME, SELF-CARE Instructions: Atrial Fibrillation ([facility]) Additional Instructions: Follow up with Dr. Corey of Cardiology to discuss your episode of AFib and to have an outpatient medical assistant secretary set up. Start taking Metoprolol 12.5mg. Wean off Clonidine by taking it once a day and taking Metoprolol once a day in its place. Once you have taken Clonidine only in the morning for a week, come completely off it and start taking Metoprolol 12.5mg twice a day. Prescriptions: Metoprolol Tartrate [Lopressor 25 mg Tablet] 12.5 mg PO Q12 #30 tab
[2019-07-12 17:53] LABS: ABSOLUTE LYMPHOCYTES (AUTO) 0.9 10^3/uL (0.5-4.7); ABSOLUTE MONOCYTES (AUTO) 0.5 10^3/uL (0.1-1.4); ABSOLUTE NEUT (AUTO) 6.9 10^3/uL (1.7-8.2); BASOPHILS % (AUTO) 0.5 % (0-2); EOSINOPHILS % (AUTO) 0.4 % (0-6); HEMATOCRIT 39.1 % (36.0-47.0); HEMOGLOBIN 12.8 g/dL (12.0-15.5); LYMPHOCYTES % (AUTO) 10.8 % (13-45); MEAN CORPUSCULAR HEMOGLOBIN 25.3 pg (27.0-33.4); MEAN CORPUSCULAR HGB CONC 32.8 g/dL (32.0-36.0); MEAN CORPUSCULAR VOLUME 77 fl (80-97); MONOCYTES % (AUTO) 5.6 % (3-13); PLATELET COUNT 293 10^3/uL (150-450); RED BLOOD COUNT 5.05 10^6/uL (3.72-5.28); RED CELL DISTRIBUTION WIDTH 17.1 % (11.5-14.0); SEGMENTED NEUTROPHILS % (AUTO) 82.7 % (42-78); TOTAL CELLS COUNTED % (AUTO) 100 %; WHITE BLOOD COUNT 8.3 10^3/uL (4.0-10.5)
[2019-07-12 18:09] LABS: ALBUMIN 4.5 g/dL (3.5-5.0); ALKALINE PHOSPHATASE 84 U/L (38-126); ANION GAP 13 (5-19); ASPARTATE AMINO TRANSFERASE 48 U/L (14-36); BILIRUBIN,DIRECT 0.6 mg/dL (0.0-0.4); BILIRUBIN,TOTAL 0.6 mg/dL (0.2-1.3); BLOOD UREA NITROGEN 28 mg/dL (7-20); CALCIUM 8.9 mg/dL (8.4-10.2); CARBON DIOXIDE 30 mmol/L (22-30); CHLORIDE 95 mmol/L (98-107); GLUCOSE 133 mg/dL (75-110); POTASSIUM 4.3 mmol/L (3.6-5.0); TOTAL PROTEIN 8.1 g/dL (6.3-8.2)
[2019-07-12] MEDS: ACETAMINOPHEN 325 MG TABLET PO ONE ×2 (18:10→19:31)
[2019-07-12 18:32] LABS: TROPONIN I 0.039 ng/mL
[2019-07-12 20:00] VITALS: BP 160/71
--- NOTE | 2019-07-13 09:17 | EKG REPORT ---
SEVERITY:- ABNORMAL ECG - A-FIB PROBABLE LVH WITH SECONDARY REPOL ABNRM ST DEPRESSION, PROBABLY RATE RELATED BORDERLINE PROLONGED QT INTERVAL : Confirmed by: Joey Gray 13-Jul-2019 09:16:00
== END 2019-07-12 19:51 | disposition home or self-care (01) ==
LOC: ER 15:07
DX: I48.0 Paroxysmal atrial fibrillation (principal); R53.1 Weakness; R41.82 Altered mental status, unspecified; R51 Headache; R42 Dizziness and giddiness; I12.0 Hypertensive chronic kidney disease with stage 5 chronic kidney disease or end stage renal disease; E11.22 Type 2 diabetes mellitus with diabetic chronic kidney disease; N18.6 End stage renal disease; Z99.2 Dependence on renal dialysis; E78.5 Hyperlipidemia, unspecified; Z88.0 Allergy status to penicillin
CPT/HCPCS: 36415; 80053; 83735; 83880; 84443; 84484; 85025; 93005; 93010; 99285